=== PATIENT | female | born 1990 | race Two or more races ===

== ENCOUNTER 2018-01-23 00:16 | Outpatient (CLI) | payer OTHER ==
[~2018-01-23] VITALS: Ht 154.9 cm; Wt 76.0 kg
[2018-01-24] MEDS ORDERED: IBUP-1222 PO (17:32)
== END 2018-01-23 02:47 | disposition home or self-care (01) ==
LOC: LDOP 00:16
PROVIDERS: ATTEND Obstetrics & Gynecology
DX: O26.893 Other specified pregnancy related conditions, third trimester (principal); R10.9 Unspecified abdominal pain; Z3A.39 39 weeks gestation of pregnancy
CPT/HCPCS: 59025; 99201; G0463